=== PATIENT | male | born 1990 | race Two or more races ===

== ENCOUNTER 2022-05-03 10:52 | Emergency (ER) | payer OTHER ==
[~2022-05-03] VITALS: Ht 165.1 cm; Wt 73.9 kg
[2022-05-03] MEDS ORDERED: TUSSI PRES-B L480 ML PO (13:58)
[2022-05-03] MEDS ORDERED: ZYRTEC10 M3 PO (13:58)
== END 2022-05-03 14:10 | disposition home or self-care (01) ==
LOC: ER 10:52
DX: U07.1 COVID-19 (principal); B34.8 Other viral infections of unspecified site

== ENCOUNTER 2022-09-19 10:54 | Emergency (ER) | payer OTHER ==
[~2022-09-19] VITALS: Ht 165.1 cm; Wt 75.3 kg
[~2022-09-19 10:54] MED LIST: TUSSI PRES-B L480 ML PO; ZYRTEC10 M3 PO
== END 2022-09-19 14:37 | disposition home or self-care (01) ==
LOC: ER 10:54
DX: S93.491A Sprain of other ligament of right ankle, initial encounter (principal); X58.XXXA Exposure to other specified factors, initial encounter; Y93.67 Activity, basketball; Y92.89 Other specified places as the place of occurrence of the external cause; Y99.8 Other external cause status; Z88.6 Allergy status to analgesic agent

== ENCOUNTER 2024-04-12 20:01 | Emergency (ER) | payer OTHER ==
[~2024-04-12] VITALS: Ht 165.1 cm; Wt 81.2 kg
[2024-04-12] MEDS ORDERED: ONDANSETRON HCL 2 MG/ML VIAL IV STA (22:22)
[2024-04-12] MEDS ORDERED: 0.9 % SODIUM CHLORIDE 1,000 ML IV STA (22:22)
[2024-04-12] MEDS ORDERED: FAMOtidine 10 MG/ML (4ML VIAL) IV PUSH STA (22:23)
[2024-04-12] MEDS ORDERED: HYDROCODONE/CHLORPHEN P-STIREX 5 ML ML PO STA (22:24)
[2024-04-12 23:06] LABS: HEMATOCRIT 43.1 % (39.0-48.0); HEMOGLOBIN 15.3 g/dL (13-16.00); MEAN CELL VOLUME 87.2 fL (80.0-100.00); MEAN CORPUSCULAR HGB CONC 35.5 g/dl (32.0-36.0); PLATELET COUNT 235 K/uL (150-450); RED BLOOD COUNT 4.94 M/uL (4.00-6.00); RED CELL DISTRIBUTION WIDTH 13.6 % (11.5-14.5)
[2024-04-13 00:05] LABS: CALCIUM 9.2 mg/dL (8.5-10.1); CREATININE SERUM 1.04 mg/dL (0.70-1.30); GFR 83.3; POTASSIUM 3.7 mEq/L (3.5-5.1)
[2024-04-13] MEDS ORDERED: ONDANSETRON ODT8 MG PO (02:19)
[2024-04-13] MEDS ORDERED: PEPCID AC20 MG PO (02:19)
[2024-04-13] MEDS ORDERED: INTESTINEX680 M1 PO (02:19)
[2024-04-13] MEDS ORDERED: DIPHENOXYLATE HCL/ATROPINE 1 UDTAB TABLET PO ONE (02:30)
== END 2024-04-13 02:32 | disposition home or self-care (01) ==
LOC: ER 20:02
DX: K52.9 Noninfective gastroenteritis and colitis, unspecified (principal); B34.9 Viral infection, unspecified; E86.0 Dehydration; Z20.822 Contact with and (suspected) exposure to COVID-19; Z88.6 Allergy status to analgesic agent